=== PATIENT | male | born 1935 | race Caucasian/White ===

== ENCOUNTER → 2016-11-12 | Outpatient (CLI) | payer MEDICARE, BC ==
--- NOTE | 2016-11-12 10:02 | CT ---
EXAMINATION TYPE: CT brain wo con DATE OF EXAM: 11/12/2016 COMPARISON: NONE HISTORY: H/O stroke, not feeling well CT DLP: 1054.2 mGycm Automated exposure control for dose reduction was used. FINDINGS: There is no acute intracranial hemorrhage, mass effect, or midline shift identified. The ventricles and sulci are within normal limits in size. There are cerebral vascular calcifications. Low-attenuati on within the posterior temporal, left parietal region compatible with encephalomalacia and previous infarct. Ex vacuo phenomenon present at the posterior horn of the left lateral ventricle. There is co rtical atrophy. Periventricular white matter low-attenuation compatible with chronic small vessel isc hemia is noted. The globes are intact and the visualized sinuses are clear. IMPRESSION: No acute intracranial hemorrhage, mass effect, or midline shift is seen. Age-related atrophy and clinical medical assistant shubham small vessel ischemia.
== END | disposition home or self-care (01) ==
LOC: RADCTMAIN 09:18
PROVIDERS: ATTEND Family Medicine
DX: G31.9 Degenerative disease of nervous system, unspecified (principal); I67.82 Cerebral ischemia; Z88.5 Allergy status to narcotic agent; Z88.8 Allergy status to other drugs, medicaments and biological substances
CPT/HCPCS: 70450

== ENCOUNTER 2018-03-29 12:06 | Emergency (ER) | payer MEDICARE, BC ==
[2018-03-29 12:15] VITALS: RESP 18
--- NOTE | 2018-03-29 12:43 | ED ---
General Adult HPI - General Chief complaint: Dizziness Stated complaint: lightheaded/dizziness Time Seen by Provider: 03/29/18 12:10 Source: patient, EMS, RN notes reviewed Mode of arrival: EMS Limitations: no limitations - History of Present Illness Initial comments: This is an 83-year-old who presents emergency department because he became dizzy while he was cutting down trees this morning. Patient states he is so dizzy had a go to the ground and stated because every time he try to get up the dizziness got worse. Patient denied any headache. Patient states she was looking up and down while he was cutting a tree. Patient did not notice that movement was making it worse. Patient denied any nausea or vomiting. Patient denied any palpitations or chest pain. Patient had any difficulty breathing or shortness of breath. Patient denies any previous history of similar. Patient denies any history of atrial fibrillation. Patient denies any abdominal pain. Patient denies any recent fever chills or cough. Patient states he did not at any time feel like he was going to pass out it was just so dizzy was difficult to stand - Related Data Home Medications Medication Instructions Recorded Confirmed Allopurinol [Zyloprim] 100 mg PO BID 03/29/18 03/29/18 Atenolol [Tenormin] 50 mg PO BID 03/29/18 03/29/18 Enalapril/Hydrochlorothiazide 1 tab PO DAILY 03/29/18 03/29/18 [Vaseretic 5-12.5 mg] Lansoprazole 15 mg PO DAILY 03/29/18 03/29/18 Loratadine [Claritin] 10 mg PO DAILY 03/29/18 03/29/18 Warfarin Sodium [Coumadin] 5 mg PO MOTUWETHFR 03/29/18 03/29/18 Warfarin Sodium [Coumadin] 10 mg PO SUSA 03/29/18 03/29/18 Previous Rx's Medication Instructions Recorded Meclizine [Antivert] 25 mg PO TID #20 tab 03/29/18 Allergies Allergy/AdvReac Type Severity Reaction Status Date / Time codeine Allergy Unknown Verified 03/29/18 13:15 diazepam [From Valium] Allergy Unknown Verified 03/29/18 13:15 Review of Systems ROS Statement: Those systems with pertinent positive or pertinent negative responses have been documented in the HPI. ROS Other: All systems not noted in ROS Statement are negative. Past Medical History Past Medical History: Atrial Flutter, CVA/TIA, Hypertension History of Any Multi-Drug Resistant Organisms: None Reported Past Surgical History: Appendectomy Past Psychological History: No Psychological Hx Reported Smoking Status: Former smoker Past Alcohol Use History: None Reported Past Drug Use History: None Reported General Exam - General Exam Comments Initial Comments: GENERAL: Patient is well-developed and well-nourished. Patient is nontoxic and well- hydrated and is in mild distress. ENT: Neck is soft and supple. No significant lymphadenopathy is noted. Oropharynx is clear. Moist mucous membranes. Neck has full range of motion without eliciting any pain. EYES: The sclera were anicteric and conjunctiva were pink and moist. Extraocular movements were intact and pupils were equal round and reactive to light. Eyelids were unremarkable. PULMONARY: Unlabored respirations. Good breath sounds bilaterally. No audible rales rhonchi or wheezing was noted. CARDIOVASCULAR: Irregular rate and rhythm ABDOMEN: Soft and nontender with normal bowel sounds. No palpable organomegaly was noted. There is no palpable pulsatile mass. SKIN: Skin is clear with no lesions or rashes and otherwise unremarkable. NEUROLOGIC: Patient is alert and oriented x3. Cranial nerves II through XII are grossly intact. Motor and sensory are also intact. Normal speech, volume and content. Symmetrical smile. Finger to nose cerebellar testing is normal MUSCULOSKELETAL: Normal extremities with adequate strength and full range of motion. No lower extremity swelling or edema. No calf tenderness. LYMPHATICS: No significant lymphadenopathy is noted PSYCHIATRIC: Normal psychiatric evaluation. Normal interpersonal interactions appears functionally intact in deals appropriately with others. No signs of depression. No signs of anxiety. No delusions. No hallucinations. Limitations: no limitations Course Vital Signs 03/29/18 03/29/18 12:13 14:57 Temperature 97.6 F Pulse Rate 77 66 Respiratory 18 18 Rate Blood Pressure 131/77 134/76 O2 Sat by Pulse 98 98 Oximetry Medical Decision Making - Medical Decision Making EKG shows atrial fibrillation at 60 bpm QRS is 86 QT interval is 442 QTC is 469. No old EKG yet to compare to Chest x-ray showed no acute abnormality. CT of the brain shows no acute abnormality. Patient got Antivert for the vertigo-like symptoms. Patient was no longer vertiginous and was able to ambulate without being dizzy. Patient has no symptoms at this time he will be discharged to follow-up with his doctor. Primary care doctor verified that the patient had a history of atrial fibrillation. - Lab Data Result diagrams: 03/29/18 12:15 03/29/18 12:15 Lab Results 03/29/18 03/29/18 03/29/18 Range/Units 12:15 12:15 12:15 WBC 6.9 (3.8-10.6) k/uL RBC 3.95 L (4.30-5.90) m/uL Hgb 12.5 L (13.0-17.5) gm/dL Hct 38.9 L (39.0-53.0) % MCV 98.5 (80.0-100.0) fL MCH 31.5 (25.0-35.0) pg MCHC 32.0 (31.0-37.0) g/dL RDW 13.8 (11.5-15.5) % Plt Count 217 (150-450) k/uL Neutrophils % 57 % Lymphocytes % 29 % Monocytes % 9 % Eosinophils % 3 % Basophils % 1 % Neutrophils # 3.9 (1.3-7.7) k/uL Lymphocytes # 2.0 (1.0-4.8) k/uL Monocytes # 0.6 (0-1.0) k/uL Eosinophils # 0.2 (0-0.7) k/uL Basophils # 0.1 (0-0.2) k/uL PT (9.0-12.0) sec INR (<1.2) APTT (22.0-30.0) sec Sodium 136 L (137-145) mmol/L Potassium 4.1 (3.5-5.1) mmol/L Chloride 104 (98-107) mmol/L Carbon Dioxide 23 (22-30) mmol/L Anion Gap 9 mmol/L BUN 21 H (9-20) mg/dL Creatinine 0.90 (0.66-1.25) mg/dL Est GFR (CKD-EPI)AfAm >90 (>60 ml/min/1.73 sqM) Est GFR (CKD-EPI)NonAf 79 (>60 ml/min/1.73 sqM) Glucose 117 H (74-99) mg/dL Calcium 8.9 (8.4-10.2) mg/dL Magnesium 1.8 (1.6-2.3) mg/dL Total Bilirubin 0.5 (0.2-1.3) mg/dL AST 38 (17-59) U/L ALT 32 (21-72) U/L Alkaline Phosphatase 68 (38-126) U/L Total Creatine Kinase 159 (55-170) U/L CK-MB (CK-2) 2.7 H (0.0-2.4) ng/mL CK-MB (CK-2) Rel Index 1.7 Troponin I <0.012 (0.000-0.034) ng/mL Total Protein 6.8 (6.3-8.2) g/dL Albumin 3.7 (3.5-5.0) g/dL 03/29/18 Range/Units 12:15 WBC (3.8-10.6) k/uL RBC (4.30-5.90) m/uL Hgb (13.0-17.5) gm/dL Hct (39.0-53.0) % MCV (80.0-100.0) fL MCH (25.0-35.0) pg MCHC (31.0-37.0) g/dL RDW (11.5-15.5) % Plt Count (150-450) k/uL Neutrophils % % Lymphocytes % % Monocytes % % Eosinophils % % Basophils % % Neutrophils # (1.3-7.7) k/uL Lymphocytes # (1.0-4.8) k/uL Monocytes # (0-1.0) k/uL Eosinophils # (0-0.7) k/uL Basophils # (0-0.2) k/uL PT 22.3 H (9.0-12.0) sec INR 2.5 H (<1.2) APTT 26.5 (22.0-30.0) sec Sodium (137-145) mmol/L Potassium (3.5-5.1) mmol/L Chloride (98-107) mmol/L Carbon Dioxide (22-30) mmol/L Anion Gap mmol/L BUN (9-20) mg/dL Creatinine (0.66-1.25) mg/dL Est GFR (CKD-EPI)AfAm (>60 ml/min/1.73 sqM) Est GFR (CKD-EPI)NonAf (>60 ml/min/1.73 sqM) Glucose (74-99) mg/dL Calcium (8.4-10.2) mg/dL Magnesium (1.6-2.3) mg/dL Total Bilirubin (0.2-1.3) mg/dL AST (17-59) U/L ALT (21-72) U/L Alkaline Phosphatase (38-126) U/L Total Creatine Kinase (55-170) U/L CK-MB (CK-2) (0.0-2.4) ng/mL CK-MB (CK-2) Rel Index Troponin I (0.000-0.034) ng/mL Total Protein (6.3-8.2) g/dL Albumin (3.5-5.0) g/dL Disposition Clinical Impression: Vertigo Disposition: HOME SELF-CARE Condition: Good Instructions: Vertigo (ED) Prescriptions: Meclizine [Antivert] 25 mg PO TID #20 tab Is patient prescribed a controlled substance at d/c from ED?: No Referrals: Evan Sprague MD [Primary Care Provider] - 1-2 days Time of Disposition: 15:27
[2018-03-29 13:01] LABS: Basophils # (A) 0.1 k/uL (0-0.2); Basophils % (A) 1 %; Eosinophils # (A) 0.2 k/uL (0-0.7); Eosinophils % (A) 3 %; HCT 38.9 % (39.0-53.0); HGB 12.5 gm/dL (13.0-17.5); Lymphocytes % (A) 29 %; MCH 31.5 pg (25.0-35.0); MCV 98.5 fL (80.0-100.0); Mean Platelet Volume 7.6; Monocytes # (A) 0.6 k/uL (0-1.0); Monocytes % (A) 9 %; Neutrophils # (A) 3.9 k/uL (1.3-7.7); Neutrophils % (A) 57 %; Platelet Count 217 k/uL (150-450); RBC 3.95 m/uL (4.30-5.90); RDW 13.8 % (11.5-15.5); WBC 6.9 k/uL (3.8-10.6)
[2018-03-29 13:19] LABS: Creatine Kinase 159 U/L (55-170)
[2018-03-29 13:20] LABS: ALT 32 U/L (21-72); AST 38 U/L (17-59); Albumin 3.7 g/dL (3.5-5.0); Alkaline Phosphatase 68 U/L (38-126); Anion Gap 9 mmol/L; Blood Urea Nitrogen 21 mg/dL (9-20); Calcium 8.9 mg/dL (8.4-10.2); Carbon Dioxide 23 mmol/L (22-30); Chloride 104 mmol/L (98-107); Glucose 117 mg/dL (74-99); Magnesium 1.8 mg/dL (1.6-2.3); Potassium 4.1 mmol/L (3.5-5.1); Sodium 136 mmol/L (137-145); Total Bilirubin 0.5 mg/dL (0.2-1.3); Total Protein 6.8 g/dL (6.3-8.2)
[2018-03-29 13:24] LABS: INR 2.5 (<1.2); Partial Thromboplastin Time 26.5 sec (22.0-30.0); Prothrombin Time 22.3 sec (9.0-12.0)
[2018-03-29 13:32] LABS: Creatine Kinase MB 2.7 ng/mL (0.0-2.4); Troponin I <0.012 ng/mL (0.000-0.034)
--- NOTE | 2018-03-29 13:45 | CT ---
EXAMINATION TYPE: CT brain wo con DATE OF EXAM: 03/29/2018 COMPARISON: 11/12/2016 HISTORY: dizziness/lightheaded CT DLP: 1027.[address] of the brain was performed. The ventricles, basal cisterns and sulci overlying the cerebral convexities demonstrate mild enlargem ent. There is no evidence for intracranial hemorrhage or sulcal effacement. There is decreased attenuation about the periventricular white matter and deep white matter of both c erebral hemispheres, compatible with chronic small vessel ischemia. Differential diagnosis does inclu de demyelination. Remote insult posterior left temporal parietal lobe. No mass effects are seen.No midline shift. Osseous calvarium is intact. If symptoms persist consider MRI. IMPRESSION: 1. Age related atrophic and chronic small vessel ischemic change without acute intracranial process s een at this time.
--- NOTE | 2018-03-29 14:05 | XR ---
EXAMINATION TYPE: XR chest 2V DATE OF EXAM: 03/29/2018 COMPARISON: NONE HISTORY: Shortness of breath TECHNIQUE: Frontal and lateral views of the chest are obtained. FINDINGS: Scattered senescent parenchymal changes noted. No evidence for infiltrate. No evidence for atelectasis. Nodular density left upper lobe consider CT on a nonemergent basis. Heart size is stable. Mediastinal structures are stable and grossly unremarkable. No evidence for hilar prominence. Degenerative changes dorsal spine. IMPRESSION: 1. No evidence for acute pulmonary disease.Nodular density left upper lobe consider CT on a nonemerge nt basis.
[2018-03-29] MEDS ORDERED: MECLIZINE 25 MG TAB PO STA (14:45)
[2018-03-29 14:58] VITALS: BP 134/76; PULSE 66
[2018-03-29 15:36] VITALS: TEMP 97.8
== END 2018-03-29 15:28 | disposition home or self-care (01) ==
LOC: EC 12:06
DX: R42 Dizziness and giddiness (principal); I48.91 Unspecified atrial fibrillation; I10 Essential (primary) hypertension; Z86.73 Personal history of transient ischemic attack (TIA), and cerebral infarction without residual deficits; Z87.891 Personal history of nicotine dependence; Z90.49 Acquired absence of other specified parts of digestive tract; Z79.01 Long term (current) use of anticoagulants; Z79.899 Other long term (current) drug therapy; Z88.5 Allergy status to narcotic agent; Z88.8 Allergy status to other drugs, medicaments and biological substances
CPT/HCPCS: 36415; 70450; 71046; 80053; 82550; 82553; 83735; 84484; 85025; 85610; 85730; 93005; 99285

== ENCOUNTER 2020-01-11 11:59 | Emergency (ER) | payer MEDICARE, BC ==
[2020-01-11 12:27] VITALS: BP 149/64; PULSE 65; RESP 18; TEMP 98.5
--- NOTE | 2020-01-11 13:03 | ED ---
Fall HPI - General Chief Complaint: Fall Stated Complaint: fall, rt arm injury Time Seen by Provider: 01/11/20 12:33 Source: patient Mode of arrival: wheelchair - History of Present Illness Initial Comments: Patient is an 84-year-old male on Coumadin presenting to the emergency department with a chief complaint of a fall. Patient states he was working out in his yard while he was carrying a wheelbarrow. Patient states the will per lost balance and he went down with it. Patient reports he calls a skin tear on his right arm. Patient reports he bleeds easily so he came to the emergency department to stop the bleeding. Patient denies any head injury. Patient states he has lab work performed monthly to check his INR levels. Patient reports his most recent INR levels was 2.4 which was obtained and less than 1 month. Patient reports he has no pain in his right arm aside from the skin tear. States he attempted to wrap it really tight with cloth that he had at home. States his tetanus is up-to-date. - Related Data Home Medications Medication Instructions Recorded Confirmed Enalapril/Hydrochlorothiazide 1 tab PO DAILY 03/29/18 03/29/18 [Vaseretic 5-12.5 mg] Lansoprazole 15 mg PO DAILY 03/29/18 03/29/18 Loratadine [Claritin] 10 mg PO DAILY 03/29/18 03/29/18 Warfarin Sodium [Coumadin] 5 mg PO MOTUWETHFR 03/29/18 03/29/18 Warfarin Sodium [Coumadin] 10 mg PO SUSA 03/29/18 03/29/18 allopurinoL [Zyloprim] 100 mg PO BID 03/29/18 03/29/18 atenoloL [Tenormin] 50 mg PO BID 03/29/18 03/29/18 Previous Rx's Medication Instructions Recorded Meclizine [Antivert] 25 mg PO TID #20 tab 03/29/18 Allergies Allergy/AdvReac Type Severity Reaction Status Date / Time codeine Allergy Unknown Verified 01/11/20 12:27 diazepam [From Valium] Allergy Unknown Verified 01/11/20 12:27 Review of Systems ROS Statement: Those systems with pertinent positive or pertinent negative responses have been documented in the HPI. ROS Other: All systems not noted in ROS Statement are negative. Past Medical History Past Medical History: Atrial Flutter, CVA/TIA, Hypertension History of Any Multi-Drug Resistant Organisms: None Reported Past Surgical History: Appendectomy Past Psychological History: No Psychological Hx Reported Smoking Status: Former smoker Past Alcohol Use History: None Reported Past Drug Use History: None Reported General Exam Limitations: no limitations General appearance: alert, in no apparent distress Head exam: Present: atraumatic, normocephalic, normal inspection Eye exam: Present: normal appearance, PERRL, EOMI Pupils: Present: normal accommodation ENT exam: Present: normal exam, normal oropharynx, mucous membranes moist, TM's normal bilaterally, normal external ear exam Neck exam: Present: normal inspection, full ROM. Absent: tenderness Respiratory exam: Present: normal lung sounds bilaterally. Absent: respiratory distress, wheezes Cardiovascular Exam: Present: regular rate, normal rhythm, normal heart sounds Extremities exam: Present: full ROM, tenderness (Mild tenderness at the skin tears were no joint or bone pain.), normal capillary refill, other (+2 ulnar radial pulses.). Absent: normal inspection (Multiple skin tears on the right upper extremity with varying sizes. No active bleeding at this time.) Back exam: Present: normal inspection, full ROM. Absent: tenderness Neurological exam: Present: alert, oriented X3, CN II-XII intact, normal gait Psychiatric exam: Present: normal affect, normal mood Skin exam: Present: warm, dry, intact, normal color Course Vital Signs 01/11/20 12:22 Temperature 98.5 F Pulse Rate 65 Respiratory 18 Rate Blood Pressure 149/64 O2 Sat by Pulse 96 Oximetry Medical Decision Making - Medical Decision Making Patient is an 84-year-old male presenting to emergency Department with a chief complaint of a fall. Patient describe the exact mechanism of fall with no head injury or loss of consciousness. Patient did have recent blood work less than 1 month ago revealed an INR of 2.4. Patient states he receives his labwork on monthly basis. On exam he had multiple skin tears on his right upper extremity of varying sizes with no active bleeding at this time. Excess skin was removed. The wound sites were cleaned thoroughly with iodine. Nonstick gauze was applied and the injured sites were dressed. Patient had no tenderness elsewhere aside from the superficial pain from the skin tears. Return parameters were thoroughly discussed the patient was understanding and agreeable. His tetanus is up-to-date. Case discussed with physician. Disposition Clinical Impression: Skin tear of right upper extremity, Fall Disposition: HOME SELF-CARE Condition: Stable Instructions (If sedation given, give patient instructions): Skin Tear (ED) Additional Instructions: Follow with primary care physician. Return to emergency department if symptoms worsen. Keep the dressing on over the next 3-5 days. Is patient prescribed a controlled substance at d/c from ED?: No Referrals: Evan Sprague MD [Primary Care Provider] - 1-2 days Time of Disposition: 13:22
== END 2020-01-11 13:29 | disposition home or self-care (01) ==
LOC: EC 11:59
DX: S41.111A Laceration without foreign body of right upper arm, initial encounter (principal); I10 Essential (primary) hypertension; I48.91 Unspecified atrial fibrillation; Z79.01 Long term (current) use of anticoagulants; Z79.899 Other long term (current) drug therapy; Z87.891 Personal history of nicotine dependence; Z86.73 Personal history of transient ischemic attack (TIA), and cerebral infarction without residual deficits; W01.0XXA Fall on same level from slipping, tripping and stumbling without subsequent striking against object, initial encounter; Y93.H2 Activity, gardening and landscaping; Y92.096 Garden or yard of other non-institutional residence as the place of occurrence of the external cause; Z88.5 Allergy status to narcotic agent; Z88.8 Allergy status to other drugs, medicaments and biological substances
CPT/HCPCS: 99283

== ENCOUNTER 2020-06-28 23:53 | Emergency (ER) | payer MEDICARE, BC ==
[2020-06-29 00:05] VITALS: BP 176/70; PULSE 73; RESP 16; TEMP 98.4
[2020-06-29 00:25] LABS: Basophils # (A) 0.1 k/uL (0-0.2); Basophils % (A) 1 %; Eosinophils # (A) 0.5 k/uL (0-0.7); Eosinophils % (A) 4 %; HCT 42.2 % (39.0-53.0); HGB 14.5 gm/dL (13.0-17.5); Lymphocytes # (A) 2.9 k/uL (1.0-4.8); Lymphocytes % (A) 25 %; MCHC 34.5 g/dL (31.0-37.0); MCV 95.8 fL (80.0-100.0); Mean Platelet Volume 7.4; Monocytes # (A) 1.1 k/uL (0-1.0); Monocytes % (A) 9 %; Neutrophils % (A) 59 %; Platelet Count 215 k/uL (150-450); RDW 13.4 % (11.5-15.5); WBC 11.8 k/uL (3.8-10.6)
[2020-06-29] MEDS ORDERED: SILVER NITRATE APPLICATOR 1 EACH STICK..EA. TOPICAL STA (00:27)
[2020-06-29 00:36] LABS: INR 2.6 (<1.2); Partial Thromboplastin Time 37.5 sec (22.0-30.0)
[2020-06-29 00:40] LABS: Calcium 9.2 mg/dL (8.4-10.2); Potassium 4.2 mmol/L (3.5-5.1)
--- NOTE | 2020-06-29 00:45 | ED ---
General Adult HPI - General Chief complaint: Wound/Laceration Stated complaint: Wound on back Time Seen by Provider: 06/29/20 00:07 Source: patient Mode of arrival: ambulatory Limitations: no limitations - History of Present Illness Initial comments: This patient is a 5-year-old man who presents with complaint that he has bleeding from a skin lesion. The patient states that he has had the skin lesion near his right scapular area going back for months to years. He states that tonight he was changing clothes and bumped the lesion and noticed that it was bleeding and he was not able to stop it. Patient does take Coumadin. Patient denies any signs or symptoms of anemia. No pain related to the lesion. He does note that he is going to have a biopsy of this lesion tomorrow. Onset/Timin -: hour(s) Location: back Radiation: non-radiation Severity scale (1-10): 0 Consistency: constant Improves with: none Worsens with: none Associated Symptoms: denies other symptoms Treatments Prior to Arrival: none - Related Data Home Medications Medication Instructions Recorded Confirmed Enalapril/Hydrochlorothiazide 1 tab PO DAILY 03/29/18 03/29/18 [Vaseretic 5-12.5 mg] Lansoprazole 15 mg PO DAILY 03/29/18 03/29/18 Loratadine [Claritin] 10 mg PO DAILY 03/29/18 03/29/18 Warfarin Sodium [Coumadin] 5 mg PO MOTUWETHFR 03/29/18 03/29/18 Warfarin Sodium [Coumadin] 10 mg PO SUSA 03/29/18 03/29/18 allopurinoL [Zyloprim] 100 mg PO BID 03/29/18 03/29/18 atenoloL [Tenormin] 50 mg PO BID 03/29/18 03/29/18 Previous Rx's Medication Instructions Recorded Meclizine [Antivert] 25 mg PO TID #20 tab 03/29/18 Allergies Allergy/AdvReac Type Severity Reaction Status Date / Time codeine Allergy Unknown Verified 06/29/20 00:00 diazepam [From Valium] Allergy Unknown Verified 06/29/20 00:00 Review of Systems ROS Statement: Those systems with pertinent positive or pertinent negative responses have been documented in the HPI. ROS Other: All systems not noted in ROS Statement are negative. Constitutional: Denies: fever, chills Respiratory: Denies: cough, dyspnea Cardiovascular: Denies: chest pain, palpitations, syncope Skin: Reports: as per HPI, lesions Hematological/Lymphatic: Reports: as per HPI. Denies: easy bleeding Past Medical History Past Medical History: Atrial Flutter, CVA/TIA, Hypertension History of Any Multi-Drug Resistant Organisms: None Reported Past Surgical History: Appendectomy Past Psychological History: No Psychological Hx Reported Smoking Status: Former smoker Past Alcohol Use History: None Reported Past Drug Use History: None Reported General Exam Limitations: no limitations General appearance: alert, in no apparent distress Head exam: Present: atraumatic, normocephalic Respiratory exam: Present: normal lung sounds bilaterally. Absent: respiratory distress, wheezes, rales, rhonchi, stridor Cardiovascular Exam: Present: regular rate, normal rhythm Back exam: Present: other (Patient has a approximately 3 cm diameter irregular, fleshy, pedunculated skin lesion overlying the right scapula. There does appear to be some bleeding from surface capillaries.) Neurological exam: Present: alert Skin exam: Present: warm, dry, intact, normal color, other (See above). Absent: rash Course Vital Signs 06/29/20 00:00 Temperature 98.4 F Pulse Rate 73 Respiratory 16 Rate Blood Pressure 176/70 O2 Sat by Pulse 97 Oximetry Medical Decision Making - Medical Decision Making Patient is an 85-year-old man presenting with bleeding from a skin lesion to the right back. It does appear to be probably a skin tag with some bleeding from surface capillary. I did apply silver nitrate, which did achieve good hemostasis. Discussed further care and follow-up with the patient who does have been tomorrow for biopsy of the skin lesion. - Lab Data Result diagrams: 06/29/20 00:18 06/29/20 00:18 Lab Results 06/29/20 06/29/20 06/29/20 Range/Units 00:18 00:18 00:18 WBC 11.8 H (3.8-10.6) k/uL RBC 4.40 (4.30-5.90) m/uL Hgb 14.5 (13.0-17.5) gm/dL Hct 42.2 (39.0-53.0) % MCV 95.8 (80.0-100.0) fL MCH 33.0 (25.0-35.0) pg MCHC 34.5 (31.0-37.0) g/dL RDW 13.4 (11.5-15.5) % Plt Count 215 (150-450) k/uL MPV 7.4 Neutrophils % 59 % Lymphocytes % 25 % Monocytes % 9 % Eosinophils % 4 % Basophils % 1 % Neutrophils # 7.0 (1.3-7.7) k/uL Lymphocytes # 2.9 (1.0-4.8) k/uL Monocytes # 1.1 H (0-1.0) k/uL Eosinophils # 0.5 (0-0.7) k/uL Basophils # 0.1 (0-0.2) k/uL PT 25.0 H (9.0-12.0) sec INR 2.6 H (<1.2) APTT 37.5 H (22.0-30.0) sec Sodium 136 L (137-145) mmol/L Potassium 4.2 (3.5-5.1) mmol/L Chloride 102 (98-107) mmol/L Carbon Dioxide 25 (22-30) mmol/L Anion Gap 9 mmol/L BUN 18 (9-20) mg/dL Creatinine 1.07 (0.66-1.25) mg/dL Est GFR (CKD-EPI)AfAm 74 (>60 ml/min/1.73 sqM) Est GFR (CKD-EPI)NonAf 64 (>60 ml/min/1.73 sqM) Glucose 138 H (74-99) mg/dL Calcium 9.2 (8.4-10.2) mg/dL Disposition Clinical Impression: Skin tag, Bleeding Disposition: HOME SELF-CARE Condition: Good Instructions (If sedation given, give patient instructions): Potassium Nitrate/Silver Nitrate (On the skin) Is patient prescribed a controlled substance at d/c from ED?: No Referrals: Evan Sprague MD [Primary Care Provider] - 1-2 days
== END 2020-06-29 00:55 | disposition home or self-care (01) ==
LOC: EC 23:53
DX: L98.9 Disorder of the skin and subcutaneous tissue, unspecified (principal); I10 Essential (primary) hypertension; Z79.899 Other long term (current) drug therapy; Z88.5 Allergy status to narcotic agent; Z88.8 Allergy status to other drugs, medicaments and biological substances; Z90.49 Acquired absence of other specified parts of digestive tract; Z87.891 Personal history of nicotine dependence; Z86.73 Personal history of transient ischemic attack (TIA), and cerebral infarction without residual deficits
CPT/HCPCS: 36415; 80048; 85025; 85610; 85730; 99283

== ENCOUNTER 2023-11-16 19:10 | Emergency (ER) | payer MEDICARE, BC ==
--- NOTE | 2023-11-16 19:24 | ED ---
General Adult HPI - General Source: RN notes reviewed <Herbie Carbajal - Last Filed: 11/16/23 19:25> - General Source: patient, RN notes reviewed, old records reviewed <Lamont Kerns - Last Filed: 11/16/23 22:16> - General Stated complaint: dizzy Time Seen by Provider: 11/16/23 19:23 - History of Present Illness Initial comments: Quicknote 88-year-old male presenting to the ED with complaints of dizziness. Patient states he was working outside all day when he was having intermittent episodes of dizziness. States that this started around 8 AM. Reports dizziness is worse with movement. Denies chest pain or shortness of breath. (Herbie Carbajal) Patient is an 88-year-old male who is brought to the emergency department for evaluation. Brought in by his son for evaluation of dizziness, possible mild confusion after working all day outside at home. Has a history of multiple strokes. Is still on Coumadin. Has a history of atrial flutter. Patient is currently at his baseline, which is hard of hearing with some slight difficulty with word finding but overall no deficits that are residual from the stroke. He states he did need some therapy to regain his speech. Patient's son does conf irm he is at his baseline and the only reason why patient presents is for mostly of the dizziness at this time. He does have a history of some room spinning dizziness which she described but it seemed worse earlier which is why he was brought in for evaluation. Patient denies any other acute complaints. Denies any current dizziness. Denies chest pain or shortness of breath. Denies abdominal pain. Presents for further evaluation at this time. Patient is seen as a quick note. I evaluated the patient when he was placed in room.Patient is on Coumadin. Denies any falls. (Lamont Kerns) - Related Data Home Medications Medication Instructions Recorded Confirmed Enalapril/Hydrochlorothiazide 1 tab PO DAILY 03/29/18 03/29/18 [Vaseretic 5-12.5 mg] Lansoprazole 15 mg PO DAILY 03/29/18 03/29/18 Loratadine [Claritin] 10 mg PO DAILY 03/29/18 03/29/18 Warfarin Sodium [Coumadin] 5 mg PO MOTUWETHFR 03/29/18 03/29/18 Warfarin Sodium [Coumadin] 10 mg PO SUSA 03/29/18 03/29/18 allopurinoL [Zyloprim] 100 mg PO BID 03/29/18 03/29/18 atenoloL [Tenormin] 50 mg PO BID 03/29/18 03/29/18 Previous Rx's Medication Instructions Recorded Meclizine [Antivert] 25 mg PO TID #20 tab 03/29/18 Amoxic-Pot Clav 875-125Mg 1 tab PO Q12HR 7 Days #14 tab 11/16/23 [Augmentin 875-125] Allergies Allergy/AdvReac Type Severity Reaction Status Date / Time codeine Allergy Unknown Verified 11/16/23 19:28 diazepam [From Valium] Allergy Unknown Verified 11/16/23 19:28 Review of Systems ROS Other: All systems not noted in ROS Statement are negative. <Herbie Carbajal - Last Filed: 11/16/23 19:25> ROS Other: All systems not noted in ROS Statement are negative. <Lamont Kerns - Last Filed: 11/16/23 22:16> ROS Statement: Those systems with pertinent positive or pertinent negative responses have been documented in the HPI. Review of Systems: CONST: Denies fever EYES: Denies blurry vision ENT: Denies nasal congestion C/V: Denies Chest pain RESP: Denies shortness of breath GI: Denies abdominal pain : Denies dysuria SKIN: Denies rash. MSK: Denies joint pain. NEURO: Denies headache (Lamont Kerns) Past Medical History Past Medical History: Atrial Flutter, CVA/TIA, Hypertension History of Any Multi-Drug Resistant Organisms: None Reported Past Surgical History: Appendectomy Past Psychological History: No Psychological Hx Reported Smoking Status: Former smoker Past Alcohol Use History: None Reported Past Drug Use History: None Reported <Herbie Carbajal - Last Filed: 11/16/23 19:25> General Exam <Herbie Carbajal - Last Filed: 11/16/23 19:25> <Lamont Kerns - Last Filed: 11/16/23 22:16> - General Exam Comments Initial Comments: Visual Physical Exam Vital signs reviewed General: Well-appearing, nontoxic, no acute distress. Head: Normocephalic, atraumatic Eyes: PERRLA, EOMI ENT: Airway patent Chest: Nonlabored breathing Skin: No visual rash, normal skin tone Neuro: Alert and oriented 3 Musculoskeletal: No gross abnormalities (Herbie Carbajal) General: Appears in no acute distress. HEAD: Normal with no signs of head trauma. EYES: PERRLA, EOMI, conjunctiva normal, no discharge. Pulls are 3 mm and equal bilaterally. ENT: Hearing grossly intact, normal oropharynx. RESPIRATORY: Clear breath sounds bilaterally. No wheezes, rales, or rhonchi. C/V: Regular rate and rhythm. S1 and S2 auscultated, no edema, peripheral pulses 2+ and intact throughout ABD: Abd is soft, nontender, nondistended EXT: Normal range of motion, no obvious deformity SKIN: No rashes or lesions observed on exposed skin. NEURO: Alert and oriented x 4. Cranial nerves II-XII intact. No focal sensory or strength deficits. NIH is 0 for new deficits. GCS of 15. (Lamont Kerns) Course Vital Signs 11/16/23 11/16/23 11/16/23 19:21 21:00 21:51 Temperature 97.9 F 98.1 F Pulse Rate 81 58 L 71 Respiratory 18 18 18 Rate Blood Pressure 162/69 143/85 132/63 O2 Sat by Pulse 100 100 100 Oximetry Medical Decision Making <Herbie Carbajal - Last Filed: 11/16/23 19:25> - Lab Data Result diagrams: 11/16/23 19:50 11/16/23 19:50 - EKG Data -: EKG Interpreted by Ak <Lamont Kerns - Last Filed: 11/16/23 22:16> - Medical Decision Making Quicknote portion performed. Signed Herbie Carbajal PA-C (Herbie Carbajal) Was pt. sent in by a medical professional or institution (, PA, MARINE PHOTOGRAPHER, urgent care, hospital, or shelter...) When possible be specific @ -No Did you speak to anyone other than the patient for history (EMS, parent, family, police, friend...)? What history was obtained from this source @ -Spoke with patient's son who is at bedside and confirm patient is at current baseline mental status. Just concern for slightly worse dizziness earlier. Did you review nursing and triage notes (agree or disagree)? Why? @ -I reviewed and agree with nursing and triage notes Were old charts reviewed (outside hosp., previous admission, EMS record, old EKG, old radiological studies, urgent care reports/EKG's, shelter records)? Report findings @ -No old charts were reviewed Differential Diagnosis (chest pain, altered mental status, abdominal pain women, abdominal pain men, vaginal bleeding, weakness, fever, dyspnea, syncope, headache, dizziness, GI bleed, back pain, seizure, CVA, palpatations, mental health, musculoskeletal)? @ -Differential Dizziness: Benign paroxysmal positional Vertigo, Menieres disease, otitis media, acoustic neuroma, vertebrobasilar insufficiency, cerebellar stroke, encephalitis, hypovolemic, arrhythmia, coronary artery syndrome, anemia, this is not meant to be an all-inclusive list EKG interpreted by me (3pts min.). @ -As above X-rays interpreted by me (1pt min.). @ -Chest x-ray shows possible developing left upper lobe pneumonia CT interpreted by me (1pt min.). @ -CT brain reveals no obvious acute intracranial process. U/S interpreted by me (1pt. min.). @ -None done What testing was considered but not performed or refused? (CT, X-rays, U/S, la bs)? Why? @ -None What meds were considered but not given or refused? Why? @ -None Did you discuss the management of the patient with other professionals (professionals i.e. , PA, MARINE PHOTOGRAPHER, lab, RT, psych nurse, social welfare clerk, bander and cellophaner helper machine, teacher, sheriff's officer, shoe parts caser)? Give summary @ -No Was smoking cessation discussed for >3mins.? @ -No Was critical care preformed (if so, how long)? @ -No Were there social determinants of health that impacted care today? How? (Homelessness, low income, unemployed, alcoholism, drug addiction, transportation, low edu. Level, literacy, decrease access to med. care, alf, rehab)? @ -No Was there de-escalation of care discussed even if they declined (Discuss DNR or withdrawal of care, Hospice)? DNR status @ -No What co-morbidities impacted this encounter? (DM, HTN, Smoking, COPD, CAD, Cancer, CVA, ARF, Chemo, Hep., AIDS, mental health diagnosis, sleep apnea, morbid obesity)? @ -Prior strokes Was patient admitted / discharged? Hospital course, mention meds given and route, prescriptions, significant lab abnormalities, going to OR and other [facility] info. @ -Based on the patient's presentation and physical exam, presents emergency department complaining of worsening dizziness earlier. Symptoms are more or less resolved the patient will be given a dose of meclizine as well as IV fluids. Patient's son does confirm that he is at his baseline mental status currently. As patient was working outside and had a transient episode of confusion earlier we will obtain CT brain as well as basic labs. Patient and patient's son in agreement this plan. Vital signs within acceptable limits. EKG shows no signs of acute ischemia. Patient's laboratory studies are remarkable for slight supratherapeutic INR 3.1. Made to the labs within acceptable limits. CT brain shows no obvious acute intracranial process. Chest x-ray shows possible developing left upper lobe pneumonia. On reevaluation, patient remains asymptomatic. Discussed results of imaging and workup. Will be initiated on antibiotics for left upper lobe pneumonia. Will be started on Augmentin. I also recommended he hold 1 dose of Coumadin as he does have a slight supratherapeutic INR which she was in agreement with. Patient's son updated by nursing staff and patient will be discharged home in the care of his son. I will provide the patient with a prescription for Augmentin. I instructed the patient to follow up with their PCP in the next 1-3 days.. I explained that the patient should return to the emergency department if they experience any worsening symptoms. Strict return precautions were discussed with the patient. The patient expressed understanding of these instructions. I answered all questions that the patient had. The patient was discharged home in good condition with their prescriptions and follow up information. Undiagnosed new problem with uncertain prognosis? @ -No Drug Therapy requiring intensive monitoring for toxicity (Heparin, Nitro, Insu alejandra, Cardizem)? @ -No Were any procedures done? @ -No Diagnosis/symptom? @ -Pneumonia, supratherapeutic INR Acute, or Chronic, or Acute on Chronic? @ -Acute Uncomplicated (without systemic symptoms) or Complicated (systemic symptoms)? @ -Uncomplicated Side effects of treatment? @ -No Exacerbation, Progression, or Severe Exacerbation? @ -No Poses a threat to life or bodily function? How? (Chest pain, [place], [place], pneumonia, PE, COPD, DKA, ARF, appy, cholecystitis, CVA, Diverticulitis, Homicidal, Suicidal, threat to staff... and all critical care pts) @ -Unlikely Diagnosis/symptom? @ -Dizziness/vertigo Acute, or Chronic, or Acute on Chronic? @ -Acute on chronic Uncomplicated (without systemic symptoms) or Complicated (systemic symptoms)? @ -Complicated Side effects of treatment? @ -None Exacerbation, Progression, or Severe Exacerbation] @ -No Poses a threat to life or bodily function? @ -Unlikely (Lamont Kerns) - Lab Data Lab Results 11/16/23 11/16/23 11/16/23 Range/Units 19:50 19:50 19:50 WBC 7.4 (3.8-10.6) k/uL RBC 4.19 L (4.30-5.90) m/uL Hgb 13.3 (13.0-17.5) gm/dL Hct 41.3 (39.0-53.0) % MCV 98.8 (80.0-100.0) fL MCH 31.8 (25.0-35.0) pg MCHC 32.1 (31.0-37.0) g/dL RDW 13.5 (11.5-15.5) % Plt Count 196 (150-450) k/uL MPV 7.6 Neutrophils % 46 % Lymphocytes % 38 % Monocytes % 9 % Eosinophils % 3 % Basophils % 1 % Neutrophils # 3.4 (1.3-7.7) k/uL Lymphocytes # 2.8 (1.0-4.8) k/uL Monocytes # 0.7 (0-1.0) k/uL Eosinophils # 0.2 (0-0.7) k/uL Basophils # 0.1 (0-0.2) k/uL PT (10.0-12.5) sec INR (<1.2) APTT (22.0-30.0) sec Sodium 135 L (137-145) mmol/L Potassium 4.4 (3.5-5.1) mmol/L Chloride 103 (98-107) mmol/L Carbon Dioxide 26 (22-30) mmol/L Anion Gap 6 mmol/L BUN 21 H (9-20) mg/dL Creatinine 0.86 (0.66-1.25) mg/dL Est GFR (CKD-EPI)AfAm >90 (>60 ml/min/1.73 sqM) Est GFR (CKD-EPI)NonAf 78 (>60 ml/min/1.73 sqM) Glucose 87 (74-99) mg/dL Calcium 9.0 (8.4-10.2) mg/dL Magnesium 1.9 (1.6-2.3) mg/dL Total Bilirubin 1.1 (0.2-1.3) mg/dL AST 34 (17-59) U/L ALT 13 (4-49) U/L Alkaline Phosphatase 98 (38-126) U/L Troponin I 0.019 (0.000-0.034) ng/mL Total Protein 6.8 (6.3-8.2) g/dL Albumin 4.0 (3.5-5.0) g/dL 11/16/23 Range/Units 19:50 WBC (3.8-10.6) k/uL RBC (4.30-5.90) m/uL Hgb (13.0-17.5) gm/dL Hct (39.0-53.0) % MCV (80.0-100.0) fL MCH (25.0-35.0) pg MCHC (31.0-37.0) g/dL RDW (11.5-15.5) % Plt Count (150-450) k/uL MPV Neutrophils % % Lymphocytes % % Monocytes % % Eosinophils % % Basophils % % Neutrophils # (1.3-7.7) k/uL Lymphocytes # (1.0-4.8) k/uL Monocytes # (0-1.0) k/uL Eosinophils # (0-0.7) k/uL Basophils # (0-0.2) k/uL PT 30.3 H (10.0-12.5) sec INR 3.1 H (<1.2) APTT 39.7 H (22.0-30.0) sec Sodium (137-145) mmol/L Potassium (3.5-5.1) mmol/L Chloride (98-107) mmol/L Carbon Dioxide (22-30) mmol/L Anion Gap mmol/L BUN (9-20) mg/dL Creatinine (0.66-1.25) mg/dL Est GFR (CKD-EPI)AfAm (>60 ml/min/1.73 sqM) Est GFR (CKD-EPI)NonAf (>60 ml/min/1.73 sqM) Glucose (74-99) mg/dL Calcium (8.4-10.2) mg/dL Magnesium (1.6-2.3) mg/dL Total Bilirubin (0.2-1.3) mg/dL AST (17-59) U/L ALT (4-49) U/L Alkaline Phosphatase (38-126) U/L Troponin I (0.000-0.034) ng/mL Total Protein (6.3-8.2) g/dL Albumin (3.5-5.0) g/dL - EKG Data EKG Comments: 12-lead Electrocardiogram Interpretation Note EKG was reviewed and interpreted by myself. 12-lead ECG performed at 1957 is interpreted by me as revealing atrial fibrillation at a rate of 67 beats per minute. [place] is normal. QRS duration is 84 ms, QTc is 454 ms.. There were no ST or T wave abnormalities to suggest myocardial ischemia or injury. R wave progression across the precordium was satisfactory. By my interpretation this EKG is non-diagnostic for acute ischemia. (Lamont Kerns) Disposition <Herbie Carbajal - Last Filed: 11/16/23 19:25> Is patient prescribed a controlled substance at d/c from ED?: No Time of Disposition: 21:34 <Lamont Kerns - Last Filed: 11/16/23 22:16> Clinical Impression: Pneumonia, Dizzy spells, Supratherapeutic INR Disposition: HOME SELF-CARE Condition: Good Instructions (If sedation given, give patient instructions): Community Acquired Pneumonia (ED), Dizziness (ED) Additional Instructions: Hold 1 dose of warfarin and obtain repeat INR testing next week within the next 7 days. Prescriptions: Amoxic-Pot Clav 875-125Mg [Augmentin 875-125] 1 tab PO Q12HR 7 Days #14 tab Referrals: Evan Sprague MD [Primary Care Provider] - 1-2 days
[2023-11-16 19:27] VITALS: RESP 18
[2023-11-16] MEDS: SODIUM CHLORIDE 0.9% 1,000 ML IV STA (20:08)
[2023-11-16] MEDS: MECLIZINE 12.5 MG TAB PO STA (20:08)
[2023-11-16 20:16] LABS: Basophils # (A) 0.1 k/uL (0-0.2); Basophils % (A) 1 %; Eosinophils # (A) 0.2 k/uL (0-0.7); Eosinophils % (A) 3 %; HCT 41.3 % (39.0-53.0); HGB 13.3 gm/dL (13.0-17.5); Lymphocytes # (A) 2.8 k/uL (1.0-4.8); Lymphocytes % (A) 38 %; MCH 31.8 pg (25.0-35.0); MCHC 32.1 g/dL (31.0-37.0); MCV 98.8 fL (80.0-100.0); Mean Platelet Volume 7.6; Monocytes # (A) 0.7 k/uL (0-1.0); Monocytes % (A) 9 %; Neutrophils # (A) 3.4 k/uL (1.3-7.7); Neutrophils % (A) 46 %; Platelet Count 196 k/uL (150-450); RBC 4.19 m/uL (4.30-5.90); RDW 13.5 % (11.5-15.5); WBC 7.4 k/uL (3.8-10.6)
[2023-11-16 20:25] LABS: INR 3.1 (<1.2); Partial Thromboplastin Time 39.7 sec (22.0-30.0); Prothrombin Time 30.3 sec (10.0-12.5)
[2023-11-16 20:59] LABS: ALT 13 U/L (4-49); AST 34 U/L (17-59); African American GFR (CKD) >90 (>60 ml/min/1.73 sqM); Alkaline Phosphatase 98 U/L (38-126); Anion Gap 6 mmol/L; Blood Urea Nitrogen 21 mg/dL (9-20); Carbon Dioxide 26 mmol/L (22-30); Chloride 103 mmol/L (98-107); Glucose 87 mg/dL (74-99); Magnesium 1.9 mg/dL (1.6-2.3); Non-African American GFR(CKD) 78 (>60 ml/min/1.73 sqM); Potassium 4.4 mmol/L (3.5-5.1); Sodium 135 mmol/L (137-145); Total Bilirubin 1.1 mg/dL (0.2-1.3); Total Protein 6.8 g/dL (6.3-8.2)
--- NOTE | 2023-11-16 21:02 | XR ---
EXAMINATION TYPE: XR chest 2V DATE OF EXAM: 11/16/2023 COMPARISON: 03/29/2018 HISTORY: Dizziness TECHNIQUE: Frontal and lateral views of the chest are obtained. FINDINGS: The heart size is normal. There is a small partially consolidative opacity in the left upper lobe martha picious for pneumonia. There is no pleural effusion or pneumothorax. The osseous structures are intact. IMPRESSION: Findings suspicious for left upper lobe pneumonia. Short-term follow-up to resolution is recommended.
--- NOTE | 2023-11-16 21:05 | CT ---
EXAMINATION TYPE: CT brain wo con DATE OF EXAM: 11/16/2023 COMPARISON: 03/29/2018 HISTORY: pt reports dizziness and confusion after working outside all day, noticed repetitivenes s at 1600 today. HX OF BRAIN CANCER CT DLP: 1113.4 mGycm Automated exposure control for dose reduction was used. FINDINGS: The ventricles, basal cisterns and sulci over convexities are moderately enlarged consistent with mod erate generalized atrophy appropriate for the patient's age. There is a large area of encephalomalacia involving the left parietal lobe consistent with remote inf arct. There is no acute bleed or mass effect. There is mild decreased density in the white matter consistent with mild chronic ischemic white matte r demyelination. Posterior fossa is grossly intact. The intraorbital contents appear normal with symmetric. Visualized paranasal sinuses and mastoid air cells are well aerated. IMPRESSION: 1. No acute bleed or mass effect. 2. 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 Moderate age-appropriate atrophy
[2023-11-16] MEDS: AMOXIC-POT CLAV 875-125MG 1 EACH TAB PO STA (21:46)
[2023-11-16 21:52] VITALS: BP 132/63; PULSE 71; TEMP 98.1
== END 2023-11-16 21:53 | disposition home or self-care (01) ==
LOC: EC 19:10
DX: J18.9 Pneumonia, unspecified organism (principal); R79.1 Abnormal coagulation profile; R42 Dizziness and giddiness; Z88.5 Allergy status to narcotic agent; Z88.8 Allergy status to other drugs, medicaments and biological substances; Z87.891 Personal history of nicotine dependence
CPT/HCPCS: 36415; 70450; 71046; 80053; 83735; 84484; 85025; 85610; 85730; 93005; 96360; 99284

== ENCOUNTER 2024-02-12 05:18 | Observation (INO) | payer MEDICARE, BC ==
--- NOTE | 2024-02-12 05:34 | ED ---
Dizziness HPI <Joseluis Lilly - Last Filed: 02/12/24 09:27> - General Source: patient, RN notes reviewed, old records reviewed, Caregiver Mode of arrival: wheelchair Limitations: no limitations - History of Present Illness MD Complaint: dizziness, lightheadedness, other (Hearing loss) -: hour(s) Timing: sudden onset, gradual onset History of Same: Yes History of Trauma: Yes Severity: mild Improves With: nothing, sleep Associated Symptoms: denies other symptoms <Manuel Gleason - Last Filed: 02/14/24 23:01> - General Chief Complaint: Dizziness Stated Complaint: Dizziness, Difficulty Hearing and Speaking - History of Present Illness Initial Comments: This is a 88-year-old male with poor historian coming in for evaluation of significant difficulty hearing dizziness lightheadedness and not feeling well. Patient states he started feeling sick yesterday worse today but no travel history no sick contacts no fever. Patient has no nausea vomiting diarrhea or dysuria. Patient has not started any new medications has not stopped any medications, patient does have bilateral cerumen impaction believes is affecting his hearing and his dizziness (Manuel Gleason) - Related Data Home Medications Medication Instructions Recorded Confirmed Enalapril/Hydrochlorothiazide 1 tab PO DAILY 03/29/18 02/12/24 [Vaseretic 5-12.5 mg] Warfarin Sodium [Coumadin] 5 mg PO SUMOWEFRSA 03/29/18 02/12/24 Warfarin Sodium [Coumadin] 7.5 mg PO TUTH 03/29/18 02/12/24 allopurinoL [Zyloprim] 100 mg PO BID 03/29/18 02/12/24 Triamcinolone 0.5% Cream [Kenalog 1 applic TOPICAL BID 02/12/24 02/12/24 0.5% Cream] atenoloL [Tenormin] 25 mg PO HS 02/12/24 02/12/24 Allergies Allergy/AdvReac Type Severity Reaction Status Date / Time codeine Allergy Unknown Verified 02/12/24 10:29 diazepam [From Valium] Allergy Unknown Verified 02/12/24 10:29 Review of Systems ROS Other: All systems not noted in ROS Statement are negative. <Joseluis Lilly - Last Filed: 09/06/24 09:27> ROS Other: All systems not noted in ROS Statement are negative. <VictorinoBaoromario Rondon - Last Filed: 02/14/24 23:01> ROS Statement: Those systems with pertinent positive or pertinent negative responses have been documented in the HPI. Past Medical History Past Medical History: Atrial Flutter, CVA/TIA, Hypertension History of Any Multi-Drug Resistant Organisms: None Reported Past Surgical History: Appendectomy Past Psychological History: No Psychological Hx Reported Smoking Status: Former smoker Past Alcohol Use History: None Reported Past Drug Use History: None Reported <VictorinoBaoromario Rondon - Last Filed: 02/14/24 23:01> General Exam Limitations: no limitations General appearance: alert, in no apparent distress, anxious Head exam: Present: atraumatic, normocephalic, normal inspection Eye exam: Present: normal appearance, PERRL, EOMI. Absent: scleral icterus, conjunctival injection, periorbital swelling ENT exam: Present: normal exam, mucous membranes moist Neck exam: Present: normal inspection. Absent: tenderness, meningismus, lymphadenopathy Respiratory exam: Present: normal lung sounds bilaterally. Absent: respiratory distress, wheezes, rales, rhonchi, stridor Cardiovascular Exam: Present: regular rate, normal rhythm, normal heart sounds. Absent: systolic murmur, diastolic murmur, rubs, gallop, clicks GI/Abdominal exam: Present: soft, normal bowel sounds. Absent: distended, tenderness, guarding, rebound, rigid Extremities exam: Present: normal inspection, full ROM, normal capillary refill. Absent: tenderness, pedal edema, joint swelling, calf tenderness Back exam: Present: normal inspection Neurological exam: Present: alert, oriented X3, CN II-XII intact Psychiatric exam: Present: normal affect, normal mood Skin exam: Present: warm, dry, intact, normal color. Absent: rash <Manuel Gleason - Last Filed: 02/14/24 23:01> Course <Manuel Gleason - Last Filed: 02/14/24 23:01> Vital Signs 02/12/24 02/12/24 02/12/24 05:21 07:13 11:51 Temperature 97.9 F 98.1 F Pulse Rate 70 58 L 66 Respiratory 20 15 16 Rate Blood Pressure 185/84 130/58 108/77 O2 Sat by Pulse 99 98 99 Oximetry 02/12/24 02/12/24 02/12/24 12:00 13:00 15:00 Temperature Pulse Rate 51 L 72 62 Respiratory 15 15 16 Rate Blood Pressure 164/94 168/66 164/99 O2 Sat by Pulse 96 98 99 Oximetry 02/12/24 02/12/24 02/13/24 18:46 20:12 02:00 Temperature 98.2 F Pulse Rate 78 76 76 Respiratory 15 18 16 Rate Blood Pressure 149/69 126/83 160/80 O2 Sat by Pulse 97 97 96 Oximetry 02/13/24 02/13/24 02/13/24 06:54 07:34 08:31 Temperature 97.5 F L Pulse Rate 80 76 75 Respiratory 18 18 18 Rate Blood Pressure 155/85 180/99 161/77 O2 Sat by Pulse 99 97 96 Oximetry 02/13/24 11:51 Temperature Pulse Rate 60 Respiratory 16 Rate Blood Pressure 162/83 O2 Sat by Pulse 100 Oximetry - Reevaluation(s) Reevaluation #1: 02/12/24 06:38 Medical record is reviewed (Manuel Gleason) Reevaluation #2: 02/12/24 06:39 Patient symptoms are improving (Manuel Gleason) Reevaluation #3: 02/12/24 06:39 Informed of results and questions answered (Manuel Gleason) Reevaluation #4: Was pt. sent in by a medical professional or institution (, PA, ASSOCIATE [employer], urgent care, hospital, or penitentiary...) When possible be specific @ -no Did you speak to anyone other than the patient for history (EMS, parent, family, police, friend...)? What history was obtained from this source @ -no Did you review nursing and triage notes (agree or disagree)? Why? @ -agree Are old charts reviewed (outside hosp., previous admission, EMS record, old EKG, old radiological studies, urgent care reports/EKG's, penitentiary records)? Report findings @ -yes Differential Diagnosis (chest pain, altered mental status, abdominal pain women, abdominal pain men, vaginal bleeding, weakness, fever, dyspnea, syncope, headache, dizziness, GI bleed, back pain, seizure, CVA, palpatations, mental health, musculoskeletal)? @ -prior EKG interpreted by me (3pts min.). @ -yes X-rays interpreted by me (1pt min.). @ -no CT interpreted by me (1pt min.). @ -Yes negative for acute disease U/S interpreted by me (1pt. min.). @ -no What testing was considered but not performed or refused? (CT, X-rays, U/S, labs)? Why? @ -none What meds were considered but not given or refused? Why? @ -none Did you discuss the management of the patient with other professionals (professionals i.e. , PA, ASSOC[employer]ATE [employer], lab, RT, psych nurse, social security specialist, professor of voice, teacher, county records management officer, caseworker intake)? Give summary @ -no Was smoking cessation discussed for >3mins.? @ -no Was critical care preformed (if so, how long)? @ -yes31 Were there social determinants of health that impacted care today? How? (Homelessness, low income, unemployed, alcoholism, drug addiction, transportation, low edu. Level, literacy, decrease access to med. care, correction, rehab)? @ -none Was there de-escalation of care discussed even if they declined (Discuss DNR or withdrawal of care, Hospice)? DNR status @ -no What co-morbidities impacted this encounter? (DM, HTN, Smoking, COPD, CAD, Cancer, CVA, ARF, Chemo, Hep., AIDS, mental health diagnosis, sleep apnea, morbid obesity)? @ -none Was patient admitted / discharged? Hospital course, mention meds given and route, prescriptions, significant lab abnormalities, going to OR and other pertinent info. @ -88 male to ER for dizziness, found to have elevated troponin will admit for further evaluation and management Admitted Undiagnosed new problem with uncertain prognosis? @ -no Drug Therapy requiring intensive monitoring for toxicity (Heparin, Nitro, Insulin, Cardizem)? @ -no Were any procedures done? @ -no Diagnosis/symptom? @ -Elevated troponin, dizziness Acute, or Chronic, or Acute on Chronic? @ -Acute Uncomplicated (without systemic symptoms) or Complicated (systemic symptoms)? @ -Complicated Side effects of treatment? @ -no Exacerbation, Progression, or Severe Exacerbation? @ -exacerbation Poses a threat to life or bodily function? How? (Chest pain, USA, IA, pneumonia, PE, COPD, DKA, ARF, appy, cholecystitis, CVA, Diverticulitis, Homicidal, S uicidal, threat to staff... and all critical care pts) @ -yes extremes of age (Manuel Gleason) Reevaluation #5: Differential Dizziness: Benign paroxysmal positional Vertigo, Meniere's disease, otitis media, acoustic neuroma, vertebrobasilar insufficiency, cerebellar stroke, encephalitis, hypovolemic, arrhythmia, coronary artery syndrome, anemia, this is not meant to be an all-inclusive list (Manuel Gleason) - Consultations Consultation #1: Spoke with many physicians who agreed to admit this patient (Manuel Gleason) EKG Findings - EKG Comments: EKG Findings:: EKG is A-fib 58 QRS 90 QTc 408 - EKG Results: EKG: interpreted by ERMParag <Manuel Gleason - Last Filed: 02/14/24 23:01> Medical Decision Making - Lab Data Result diagrams: 02/12/24 06:13 02/12/24 06:13 <Joseluis Lilly - Last Filed: 02/12/24 09:27> - Lab Data Result diagrams: 02/12/24 06:13 02/12/24 06:13 <Manuel Gleason - Last Filed: 02/14/24 23:01> - Medical Decision Making Patient care signed out to me by previous shift physician, Dr. Jasiel Clarke. Nazanin campos, patient is 88-year-old male presents emergency department for confusion dizziness and impacted cerumen. Plan at signout was to follow-up with pending labs and imaging. Vital signs were reviewed. Vital signs upon arrival are within acceptable limits. Laboratory evaluation obtained. INR is 3.7. CBC is unremarkable. Metabolic panel is unremarkable. Troponin is elevated 0.06. Compared to previous troponin levels seems to be higher than what he has had historically. Brain CT is unremarkable. Patient evaluated at bedside not complaining of obvious ACS type symptoms. Reevaluated at 8:27 AM found to be stable to condition. Patient given aspirin will be admitted to observation cons ultation to cardiology for elevated troponin. (Joseluis Lilly) - Lab Data Lab Results 0902/12/24 02/12/24 Range/Units 06:13 06:13 06:13 WBC 6.4 (3.8-10.6) k/uL RBC 3.98 L (4.30-5.90) m/uL Hgb 13.1 (13.0-17.5) gm/dL Hct 39.5 (39.0-53.0) % MCV 99.3 (80.0-100.0) fL MCH 33.0 (25.0-35.0) pg MCHC 33.2 (31.0-37.0) g/dL RDW 14.3 (11.5-15.5) % Plt Count 217 (150-450) k/uL MPV 7.8 Neutrophils % 58 % Lymphocytes % 27 % Monocytes % 10 % Eosinophils % 3 % Basophils % 1 % Neutrophils # 3.8 (1.3-7.7) k/uL Lymphocytes # 1.7 (1.0-4.8) k/uL Monocytes # 0.6 (0-1.0) k/uL Eosinophils # 0.2 (0-0.7) k/uL Basophils # 0.1 (0-0.2) k/uL PT 36.6 H (10.0-12.5) sec INR 3.7 H (<1.2) APTT 41.5 H (22.0-30.0) sec Sodium 136 L (137-145) mmol/L Potassium 4.1 (3.5-5.1) mmol/L Chloride 103 (98-107) mmol/L Carbon Dioxide 25 (22-30) mmol/L Anion Gap 8 mmol/L BUN 20 (9-20) mg/dL Creatinine 0.95 (0.66-1.25) mg/dL Est GFR (CKD-EPI)AfAm 83 (>60 ml/min/1.73 sqM) Est GFR (CKD-EPI)NonAf 72 (>60 ml/min/1.73 sqM) Glucose 138 H (74-99) mg/dL Plasma Lactic Acid Joseph (0.7-2.0) mmol/L Calcium 9.2 (8.4-10.2) mg/dL Phosphorus 2.9 (2.5-4.5) mg/dL Magnesium 1.8 (1.6-2.3) mg/dL Total Bilirubin 1.0 (0.2-1.3) mg/dL AST 32 (17-59) U/L ALT 13 (4-49) U/L Alkaline Phosphatase 91 (38-126) U/L Troponin I (0.000-0.034) ng/mL NT-Pro-B Natriuret Pep 1420 pg/mL Total Protein 6.5 (6.3-8.2) g/dL Albumin 3.7 (3.5-5.0) g/dL 02/12/24 02/12/24 Range/Units 06:13 06:44 WBC (3.8-10.6) k/uL RBC (4.30-5.90) m/uL Hgb (13.0-17.5) gm/dL Hct (39.0-53.0) % MCV (80.0-100.0) fL MCH (25.0-35.0) pg MCHC (31.0-37.0) g/dL RDW (11.5-15.5) % Plt Count (150-450) k/uL MPV Neutrophils % % Lymphocytes % % Monocytes % % Eosinophils % % Basophils % % Neutrophils # (1.3-7.7) k/uL Lymphocytes # (1.0-4.8) k/uL Monocytes # (0-1.0) k/uL Eosinophils # (0-0.7) k/uL Basophils # (0-0.2) k/uL PT (10.0-12.5) sec INR (<1.2) APTT (22.0-30.0) sec Sodium (137-145) mmol/L Potassium (3.5-5.1) mmol/L Chloride (98-107) mmol/L Carbon Dioxide (22-30) mmol/L Anion Gap mmol/L BUN (9-20) mg/dL Creatinine (0.66-1.25) mg/dL Est GFR (CKD-EPI)AfAm (>60 ml/min/1.73 sqM) Est GFR (CKD-EPI)NonAf (>60 ml/min/1.73 sqM) Glucose (74-99) mg/dL Plasma Lactic Acid Joseph 1.7 (0.7-2.0) mmol/L Calcium (8.4-10.2) mg/dL Phosphorus (2.5-4.5) mg/dL Magnesium (1.6-2.3) mg/dL Total Bilirubin (0.2-1.3) mg/dL AST (17-59) U/L ALT (4-49) U/L Alkaline Phosphatase (38-126) U/L Troponin I 0.060 H* (0.000-0.034) ng/mL NT-Pro-B Natriuret Pep pg/mL Total Protein (6.3-8.2) g/dL Albumin (3.5-5.0) g/dL Critical Care Time Critical Care Time: Yes Total Critical Care Time: 31 <Manuel Gleason - Last Filed: 02/14/24 23:01> Disposition Decision Time: 09:28 <Joseluis Lilly - Last Filed: 02/12/24 09:27> Is patient prescribed a controlled substance at d/c from ED?: No Time of Disposition: 07:00 <Manuel Gleason - Last Filed: 02/14/24 23:01> Clinical Impression: Benign paroxysmal positional vertigo, Dizziness, Bilateral hearing loss due to cerumen impaction, Impacted cerumen of both ears, Elevated troponin Disposition: LEFT AGAINST MEDICAL ADVICE Condition: Fair
[2024-02-12] MEDS: SODIUM CHLORIDE 0.9% 1,000 ML IV STA (06:56)
[2024-02-12 07:06] LABS: Basophils # (A) 0.1 k/uL (0-0.2); Basophils % (A) 1 %; Eosinophils # (A) 0.2 k/uL (0-0.7); Eosinophils % (A) 3 %; HCT 39.5 % (39.0-53.0); HGB 13.1 gm/dL (13.0-17.5); Lymphocytes # (A) 1.7 k/uL (1.0-4.8); Lymphocytes % (A) 27 %; MCHC 33.2 g/dL (31.0-37.0); MCV 99.3 fL (80.0-100.0); Mean Platelet Volume 7.8; Monocytes # (A) 0.6 k/uL (0-1.0); Monocytes % (A) 10 %; Neutrophils # (A) 3.8 k/uL (1.3-7.7); Neutrophils % (A) 58 %; Platelet Count 217 k/uL (150-450); RBC 3.98 m/uL (4.30-5.90); RDW 14.3 % (11.5-15.5); WBC 6.4 k/uL (3.8-10.6)
[2024-02-12 07:10] LABS: INR 3.7 (<1.2); Partial Thromboplastin Time 41.5 sec (22.0-30.0); Prothrombin Time 36.6 sec (10.0-12.5)
[2024-02-12 07:22] LABS: ALT 13 U/L (4-49); AST 32 U/L (17-59); African American GFR (CKD) 83 (>60 ml/min/1.73 sqM); Albumin 3.7 g/dL (3.5-5.0); Alkaline Phosphatase 91 U/L (38-126); Anion Gap 8 mmol/L; Blood Urea Nitrogen 20 mg/dL (9-20); Calcium 9.2 mg/dL (8.4-10.2); Carbon Dioxide 25 mmol/L (22-30); Chloride 103 mmol/L (98-107); Glucose 138 mg/dL (74-99); Magnesium 1.8 mg/dL (1.6-2.3); Non-African American GFR(CKD) 72 (>60 ml/min/1.73 sqM); Phosphorus 2.9 mg/dL (2.5-4.5); Potassium 4.1 mmol/L (3.5-5.1); Sodium 136 mmol/L (137-145); Total Protein 6.5 g/dL (6.3-8.2)
[2024-02-12 07:29] LABS: NT-Pro-B-Type Natriuretic Pept 1420 pg/mL
--- NOTE | 2024-02-12 08:20 | CT ---
EXAMINATION TYPE: CT brain wo con DATE OF EXAM: 02/12/2024 COMPARISON: 11/16/2023 HISTORY: AMS/DIZZINESS CT DLP: 1107.4 mGycm Automated exposure control for dose reduction was used. FINDINGS: Moderate degenerative change of the greater frontal lobe component. 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 No acute hemorrhage or mass effect. Intracranial a therosclerotic changes. Hypoattenuation in the white matter most available remote microvascular ische vivian craniocervical junction maintained. IMPRESSION: DEGENERATIVE REMOTE ISCHEMIC CHANGE WITH NO ACUTE HEMORRHAGE OR MASS EFFECT. CORRELATED WITH MRI C LINICALLY WARRANTED.
[2024-02-12] MEDS ORDERED: NITROGLYCERIN SL TABS 0.4 MG TAB SUBLINGUAL PRN (09:22)
[2024-02-12] MEDS: ASPIRIN 81 MG PO STA (09:50)
--- NOTE | 2024-02-12 11:23 | P.HPIM ---
History of Present Illness 88-year-old male apparently came in with complaints of lightheadedness and dizziness. Patient is a very poor historian because of his hearing problem and he states it is due to wax. Patient is feeling fine now but he says he was not feeling okay because of which she came to the hospital. Patient denied any chest pain, EKG showed mild bradycardia, atrial fibrillation. Nonspecific ST-T wave changes on the EKG as well. Patient's first set of troponin slightly elevated to 0.06 because of which second troponin was obtained which is 2.670 patient is on Coumadin at home with elevated INR of 3.7. There is no other reason for his troponin elevation because of which cardiology was consulted patient was not started on IV heparin as patient is supratherapeutic, Coumadin which is being held at this time. REVIEW OF SYSTEMS: All other systems are negative except those mentioned in the HPI PHYSICAL EXAMINATION: GENERAL: The patient is alert and oriented x3, not in any acute distress. Well developed, well nourished. HEENT: Pupils are round and equally reacting to light. EOMI. No scleral icterus. No conjunctival pallor. Normocephalic, atraumatic. No pharyngeal erythema. No thyromegaly. CARDIOVASCULAR: S1 and S2 present. No murmurs, rubs, or gallops. PULMONARY: Chest is clear to auscultation, no wheezing or crackles. ABDOMEN: Soft, nontender, nondistended, normoactive bowel sounds. No palpable organomegaly. MUSCULOSKELETAL: No joint swelling or deformity. EXTREMITIES: No cyanosis, clubbing, or pedal edema. NEUROLOGICAL: Gross neurological examination did not reveal any focal deficits. SKIN: No rashes. Assessment and plan -Troponin elevation possibility of type I non-ST elevation [place] cannot be ruled out. Cardiology was consulted. Patient is supratherapeutic and INR but may still need IV heparin but early with addition to cardiology -Atrial fibrillation, flutter chronic A-fib rate controlled. Supratherapeutic INR -Hypertension resumed on home medication DVT prophylaxis: On Coumadin supratherapeutic INR Past Medical History Past Medical History: Atrial Flutter, CVA/TIA, Hypertension History of Any Multi-Drug Resistant Organisms: None Reported Past Surgical History: Appendectomy Past Psychological History: No Psychological Hx Reported Smoking Status: Former smoker Past Alcohol Use History: None Reported Past Drug Use History: None Reported Medications and Allergies Home Medications Medication Instructions Recorded Confirmed Type Enalapril/Hydrochlorothiazide 1 tab PO DAILY 03/29/18 02/12/24 History [Vaseretic 5-12.5 mg] Warfarin Sodium [Coumadin] 5 mg PO SUMOWEFRSA 03/29/18 02/12/24 History Warfarin Sodium [Coumadin] 7.5 mg PO TUTH 03/29/18 02/12/24 History allopurinoL [Zyloprim] 100 mg PO BID 03/29/18 02/12/24 History Triamcinolone 0.5% Cream [Kenalog 1 applic TOPICAL BID 02/12/24 02/12/24 History 0.5% Cream] atenoloL [Tenormin] 25 mg PO HS 02/12/24 02/12/24 History Allergies Allergy/AdvReac Type Severity Reaction Status Date / Time codeine Allergy Unknown Verified 02/12/24 10:29 diazepam [From Valium] Allergy Unknown Verified 02/12/24 10:29 Physical Exam Vitals: Vital Signs Temp Pulse Resp BP Pulse Ox 02/12/24 07:13 58 L 15 130/58 98 02/12/24 05:21 97.9 F 70 20 185/84 99 Intake and Output 02/11/24 02/12/24 02/12/24 22:59 06:59 14:59 Other: Weight 74.389 kg Results CBC & Chem 7: 02/12/24 06:13 02/12/24 06:13 Labs: Abnormal Lab Results - Last 24 Hours (Table) 02/12/24 02/12/24 02/12/24 Range/Units 06:13 06:13 06:13 RBC 3.98 L (4.30-5.90) m/uL PT 36.6 H (10.0-12.5) sec INR 3.7 H (<1.2) APTT 41.5 H (22.0-30.0) sec Sodium 136 L (137-145) mmol/L Glucose 138 H (74-99) mg/dL Troponin I (0.000-0.034) ng/mL 02/12/24 02/12/24 Range/Units 06:13 10:03 RBC (4.30-5.90) m/uL PT (10.0-12.5) sec INR (<1.2) APTT (22.0-30.0) sec Sodium (137-145) mmol/L Glucose (74-99) mg/dL Troponin I 0.060 H* 2.670 H* (0.000-0.034) ng/mL
[2024-02-12] MEDS: TRIAMCINOLONE ACET 0.5% CREAM 15 GM TUBE TOPICAL SCH (20:42)
[2024-02-12] MEDS: atenoloL 25 MG TAB PO SCH (20:42)
[2024-02-12 22:46] LABS: Appearance,Urine Clear (Clear); Bilirubin,Urine Negative (Negative); Blood,Urine Small (Negative); Color,Urine Light Yellow; Glucose,Urine (UA) Negative (Negative); Ketones,Urine Negative (Negative); Leukocyte Esterase,Urine Negative (Negative); Mucus,Urine Rare /hpf; Nitrite,Urine Negative (Negative); PH, Urine 6.5 (5.0-8.0); Protein,Urine Trace (Negative); RBC,Urine 11 /hpf (0-5); Specific Gravity,Urine 1.016 (1.001-1.035); Squamous Epithelial Cell,Urine 1 /hpf (0-4); WBC,Urine 3 /hpf (0-5)
[2024-02-13 07:44] VITALS: TEMP 97.5
--- NOTE | 2024-02-13 08:14 | CA ---
Transthoracic Echo Report Name: Ady Calvillo Age: 88 Gender: M : 1935 Exam Date: 02/12/2024 13:26 Exam Location: [place] [facility] Ht (in): 72 Wt (lb): 164 Ordering Physician: Tiarra Meneses Attending/Referring Phys: [id number], [facility] Yanira Fairbanks RDCS Procedure CPT: Indications: elevated trops Cardiac Hx: Technical Quality: Fair Contrast 1: Total Dose (mL): Contrast 2: Total Dose (mL): MEASUREMENTS (Male / Female) Normal Values 2D ECHO LV Diastolic Diameter PLAX 5.5 cm 4.2 - 5.9 / 3.9 - 5.3 cm LV Systolic Diameter PLAX 3.5 cm IVS Diastolic Thickness 0.9 cm 0.6 - 1.0 / 0.6 - 0.9 cm LVPW Diastolic Thickness 0.9 cm 0.6 - 1.0 / 0.6 - 0.9 cm LV Relative Wall Thickness 0.3 RV Internal Dim ED PLAX 1.9 cm LVOT Diameter 2.1 cm LA Systolic Diameter LX 5.2 cm 3.0 - 4.0 / 2.7 - 3.8 cm LV Diastolic Volume MOD BP 70.3 cm??? 67 - 155 / 56 - 104 cm??? LV Systolic Volume MOD BP 28.2 cm??? 22 - 58 / 19 - 49 cm??? LV Ejection Fraction MOD BP 59.9 % >= 55 % LV Cardiac Index MOD BP 1321.2 cm???/min???m??? LV Diastolic Volume MOD 4C 88.8 cm??? LV Systolic Volume MOD 4C 31.9 cm??? LV Ejection Fraction MOD 4C 64.1 % LV Cardiac Index MOD 4C 1788.2 cm???/min???m??? LV Diastolic Length 4C 7.6 cm LV Systolic Length 4C 6.6 cm LV Diastolic Volume MOD 2C 52.4 cm??? LV Systolic Volume MOD 2C 24.5 cm??? LV Ejection Fraction MOD 2C 53.2 % LV Cardiac Index MOD 2C 875.6 cm???/min???m??? LV Diastolic Length 2C 7.1 cm LV Systolic Length 2C 6.3 cm M-MODE Aortic Root Diameter MM 3.2 cm LA Systolic Diameter MM 1.0 cm LA Ao Ratio MM 0.3 AV Cusp Separation MM 5.1 cm DOPPLER AV Peak Velocity 191.3 cm/s AV Peak Gradient 14.6 mmHg AV Mean Velocity 126.4 cm/s AV Mean Gradient 8.0 mmHg AV Velocity Time Integral 46.8 cm AI Peak Velocity 201.9 cm/s AI Peak Gradient 16.3 mmHg AI Pressure Half Time 538.5 ms LVOT Peak Velocity 79.2 cm/s LVOT Peak Gradient 2.5 mmHg LVOT Velocity Time Integral 19.8 cm LVOT Stroke Volume 65.8 cm??? LVOT Stroke Volume Index 33.6 ml/m??? LVOT Cardiac Index 2067.6 cm???/min???m??? AV Area Cont Eq vti 1.4 cm??? AV Area Cont Eq pk 1.4 cm??? MV E' Velocity 7.1 cm/s TR Peak Velocity 237.5 cm/s TR Peak Gradient 22.6 mmHg FINDINGS Left Ventricle Left ventricular ejection fraction is estimated at 50-55 %. Normal left ventricular wall motion. Left ventricular cavity size normal. No obvious regional wall motion abnormalities. Right Ventricle Normal right ventricular size and function. Right ventricular systolic pressure within normal limits. Right Atrium Mild right atrial dilatation. Left Atrium Moderate LA dilatation Mitral Valve Structurally normal mitral valve. Mitral valve thickened. Mitral annular calcification. Mild mitral regurgitation. moderate mitral annular calcification. Aortic Valve Trileaflet aortic valve. Mild aortic regurgitation. Mild aortic stenosis with a peak gradient of 15 mmHg and a mean gradient of 8 mmHg. Tricuspid Valve Tricuspid valve not well visualized. Pulmonic Valve Structurally normal pulmonic valve. Trace pulmonic regurgitation. No pulmonic stenosis. Pericardium No pericardial or pleural effusion. Aorta Normal size aortic root and proximal ascending aorta. CONCLUSIONS Left ventricular ejection fraction is estimated at 50-55 %. Mild distal amarjit-septal wall hypokinesia No obvious regional wall motion abnormalities. Normal right ventricular size and function. Moderate LA dilatation Mild mitral regurgitation. Calcific aortic valve with Mild Aortic regurgitation and mild Aortic stenosis. Previewed by: Dr Tray Baker (Electronically Signed) Final Date: 13 February 2024 08:13
[2024-02-13] MEDS: carvediloL 6.25 MG TAB PO SCH (08:23)
[2024-02-13] MEDS: lisinopriL 20 MG TAB PO SCH (08:23)
[2024-02-13] MEDS: ASPIRIN 81 MG PO SCH (08:23)
[2024-02-13] MEDS ORDERED: hydrALAZINE HCL 20 MG/ML 1 ML VIAL IVP PRN (08:56)
[2024-02-13] MEDS ORDERED: ASPIRIN 325 MG TAB PO SCH (09:00)
[2024-02-13] MEDS ORDERED: LISINOPRIL-HCTZ 10-12.5 MG 1 EACH TAB PO SCH (09:00)
[2024-02-13] MEDS ORDERED: HEPARIN SODIUM 1,000 UN/ML (10ML VL) IV PRN (10:53)
[2024-02-13] MEDS ORDERED: HEPARIN SODIUM 1,000 UN/ML (10ML VL) IV ONE (10:53)
[2024-02-13] MEDS ORDERED: ISOSORBIDE MONONITRATE ER 15 MG TAB PO SCH (11:00)
[2024-02-13] MEDS ORDERED: HEPARIN SOD,PORK IN 0.45% NACL 25,000 UNIT in 0.45% NACL 1 250ML.BAG IV SCH (11:00)
--- NOTE | 2024-02-13 11:06 | P.CRDCN ---
History of Present Illness Consult date: 02/13/24 History of present illness: HISTORY OF PRESENTING ILLNESS Patient is a 88-year-old male who presented to the hospital because of nonspecific complaints of lightheadedness and dizziness along with feeling weak. He is a very poor historian. He is not able to answer my questions appropriately. He has significant hearing impairment. I tried contacting the family members via phone but they do not know about patient's medical conditions and are not able to provide me insights why the patient is in the hospital. At this time patient feels that he was to go back home and is very impatient. On admission he had an ECG performed which showed atrial fibrillation was rate controlled heart rate 58 bpm. There were no significant ST changes that were concerning of ischemia. He is labs showed hemoglobin 13.1, INR 3.7, BUN 20, creatinine 0.9. Troponin was 0.06, 2.6, 4.9. Follow-up echocardiogram was performed which showed an EF of 50 to 55%, possible distal anteroseptal wall hypokinesia, mild aortic stenosis, mild mitral regurgitation. REVIEW OF SYSTEMS 14 point review of system is negative except what is mentioned above in HPI. PHYSICAL EXAMINATION Vital signs reviewed. Head: Normocephalic. Eyes: Sclerae nonicteric. Neck: Brisk carotid upstroke, no jugular venous distention. Lungs: Clear to auscultation. Heart: Irregularly irregular pulse, S1-S2, mild systolic murmur audible Abdomen: Soft nontender, positive bowel sounds. Extremities: No edema, intact distal pulses. Neuro: Alert, oritented, no focal deficits. Detailed neuro exam was not performed. ASSESSMENT NSTEMI Metabolic encephalopathy Lightheadedness and dizziness Chronic atrial fibrillation, slow ventricular response PLAN Continue aspirin, Lipitor 40 mg Patient's blood pressure is elevated. Will start lisinopril 20 mg daily, Imdur 50 mg daily, Coreg 6.25 mg twice daily Start IV heparin drip. Hold Coumadin. Monitor INR At this time patient is noncooperative. He wants to leave. I have communicated with patient's who is not able to give much insight. I have communicated with the patient's son I have requested him to come to the ER so that we can communicate and take a better decision for the patient and respect his wishes. Tray Baker MD, FACC, RPVI Thank you for allowing [facility] to participate in this patient's care. Feel free to reach out in case of any followup questions. Past Medical History Past Medical History: Atrial Flutter, CVA/TIA, Hypertension History of Any Multi-Drug Resistant Organisms: None Reported Past Surgical History: Appendectomy Past Psychological History: No Psychological Hx Reported Smoking Status: Former smoker Past Alcohol Use History: None Reported Past Drug Use History: None Reported Medications and Allergies Home Medications Medication Instructions Recorded Confirmed Type Enalapril/Hydrochlorothiazide 1 tab PO DAILY 03/29/18 02/12/24 History [Vaseretic 5-12.5 mg] Warfarin Sodium [Coumadin] 5 mg PO SUMOWEFRSA 03/29/18 02/12/24 History Warfarin Sodium [Coumadin] 7.5 mg PO TUTH 03/29/18 02/12/24 History allopurinoL [Zyloprim] 100 mg PO BID 03/29/18 02/12/24 History Triamcinolone 0.5% Cream [Kenalog 1 applic TOPICAL BID 02/12/24 02/12/24 History 0.5% Cream] atenoloL [Tenormin] 25 mg PO HS 02/12/24 02/12/24 History Allergies Allergy/AdvReac Type Severity Reaction Status Date / Time codeine Allergy Unknown Verified 02/12/24 10:29 diazepam [From Valium] Allergy Unknown Verified 02/12/24 10:29 Physical Exam Vitals: Vital Signs Temp Pulse Resp BP Pulse Ox 02/13/24 08:31 75 18 161/77 96 02/13/24 07:34 97.5 F L 76 18 180/99 97 02/13/24 06:54 80 18 155/85 99 02/13/24 02:00 76 16 160/80 96 02/12/24 20:12 76 18 126/83 97 02/12/24 18:46 98.2 F 78 15 149/69 97 02/12/24 15:00 62 16 164/99 99 02/12/24 13:00 72 15 168/66 98 02/12/24 12:00 51 L 15 164/94 96 02/12/24 11:51 98.1 F 66 16 108/77 99 Results 02/12/24 06:13 02/12/24 06:13 Cardiac Enzymes 02/12/24 Range/Units 12:51 Troponin I 4.900 H* (0.000-0.034) ng/mL Current Medications Generic Name Dose Route Start Last Admin Trade Name Naila PRN Reason Stop Dose Admin Aspirin 81 mg 02/13/24 09:00 02/13/24 08:23 Aspirin 81 Mg PO 81 mg DAILY [facility] Administration Atorvastatin Calcium 40 mg 02/13/24 21:00 Atorvastatin 40 Mg Tab PO HS [facility] Carvedilol 6.25 mg 02/13/24 07:45 02/13/24 08:23 Carvedilol 6.25 Mg Tab PO 6.25 mg BID-W/MEALS [facility] Administration Heparin Sodium (Porcine) 0 unit 02/13/24 10:53 Heparin Sodium 1,000 Un/Ml (10ml Vl) IV PER PROTOCOL PRN Low PTT Protocol Heparin Sodium/Sodium Chloride 250 mls @ 8.927 mls/hr 02/13/24 11:00 25,000 unit/ Sodium Chloride IV .Q24H [facility] Protocol 12 UNITS/KG/HR Isosorbide Mononitrate 15 mg 02/13/24 11:00 Isosorbide Mononitrate Er 15 Mg Tab PO DAILY [facility] Lisinopril 20 mg 02/13/24 09:00 02/13/24 08:23 Lisinopril 20 Mg Tab PO 20 mg DAILY [facility] Administration Nitroglycerin 0.4 mg 02/12/24 09:22 Nitroglycerin Sl Tabs 0.4 Mg Tab SUBLINGUAL Q5M PRN Chest Pain Triamcinolone Acetonide 1 applic 02/12/24 21:00 02/13/24 08:31 Triamcinolone Acet 0.5% Cream 15 Gm Tube TOPICAL Not Given BID [facility] Protocol 02/12/24 06:13 02/12/24 06:13
[2024-02-13 11:57] VITALS: BP 162/83; PULSE 60; RESP 16
--- NOTE | 2024-02-13 14:10 | P.PN ---
Subjective Progress Note Date: 02/13/24 88-year-old male apparently came in with complaints of lightheadedness and dizziness. Patient is a very poor historian because of his hearing problem and he states it is due to wax. Patient is feeling fine now but he says he was not feeling okay because of which she came to the hospital. Patient denied any chest pain, EKG showed mild bradycardia, atrial fibrillation. Nonspecific ST-T wave changes on the EKG as well. Patient's first set of troponin slightly elevated to 0.06 because of which second troponin was obtained which is 2.670 patient is on Coumadin at home with elevated INR of 3.7. There is no other reason for his troponin elevation because of which cardiology was consulted p atient was not started on IV heparin as patient is supratherapeutic, Coumadin which is being held at this time 02/12. Patient seen and examined. Patient is insistent about going home exp lained to him the risk of going home in light of him needing cardiac workup. Patient gets confused easily. Son on the way to talk to us. REVIEW OF SYSTEMS: CONSTITUTIONAL: No fever, no malaise,. CARDIOVASCULAR: No chest pain, no palpitations, no syncope. PULMONARY: No shortness of breath, no cough, GASTROINTESTINAL: No diarrhea, no nausea, no vomiting, no abdominal pain. NEUROLOGICAL: No headaches, no weakness, PHYSICAL EXAMINATION: GENERAL: The patient is alert to self and place HEENT: Pupils are round and equally reacting to light. EOMI. No scleral icterus. No conjunctival pallor. Normocephalic, atraumatic. No pharyngeal erythema. No thyromegaly. CARDIOVASCULAR: S1 and S2 present. No murmurs, rubs, or gallops. PULMONARY: Chest is clear to auscultation, no wheezing or crackles. ABDOMEN: Soft, nontender, nondistended, normoactive bowel sounds. No palpable organomegaly. MUSCULOSKELETAL: No joint swelling or deformity. EXTREMITIES: No cyanosis, clubbing, or pedal edema. NEUROLOGICAL: Gross neurological examination did not reveal any focal deficits. SKIN: No rashes. Assessment and plan NSTEMI Fibrillation Hypertension Monitor vital signs Monitor CBC Monitor CMP Continue telemetry monitoring Trend troponins Ordered 2D echo INR is supratherapeutic, currently hold off on heparin, once INR is less than 2, start heparin Cardiology consulted Labs and medication were reviewed.. Continue same treatment. Continue with symptomatic treatment. Resume home medication. Monitor labs and vitals. DVT and GI prophylaxis. Further recommendations as per clinical course of the patient Dictation was produced using [employer] dictation software. please excuse any grammatical, word or spelling errors. Objective - Vital Signs Vital signs: Vital Signs Temp 97.5 F L 02/13/24 07:34 Pulse 75 02/13/24 08:31 Resp 18 02/13/24 08:31 BP 161/77 02/13/24 08:31 Pulse Ox 96 02/13/24 08:31 FiO2 - Labs CBC & Chem 7: 02/12/24 06:13 02/12/24 06:13 Labs: Abnormal Lab Results - Last 24 Hours (Table) 02/12/24 02/12/24 02/12/24 Range/Units 10:03 12:51 22:14 Troponin I 2.670 H* 4.900 H* (0.000-0.034) ng/mL Urine Protein Trace H (Negative) Urine Blood Small H (Negative) Urine RBC 11 H (0-5) /hpf Urine Mucus Rare H (None) /hpf
[2024-02-13] MEDS ORDERED: ATORVASTATIN 40 MG TAB PO SCH (21:00)
== END 2024-02-13 12:26 | disposition left against medical advice (07) ==
LOC: EC 05:18 → 3SCARD 09:22
PROVIDERS: ADMIT Internal Medicine; ATTEND Internal Medicine
DX: I21.4 Non-ST elevation (NSTEMI) myocardial infarction (principal); G93.41 Metabolic encephalopathy; I48.20 Chronic atrial fibrillation, unspecified; I10 Essential (primary) hypertension; H61.23 Impacted cerumen, bilateral; H81.10 Benign paroxysmal vertigo, unspecified ear; R00.1 Bradycardia, unspecified; R79.1 Abnormal coagulation profile; I48.92 Unspecified atrial flutter; I08.0 Rheumatic disorders of both mitral and aortic valves; Z79.01 Long term (current) use of anticoagulants; Z79.899 Other long term (current) drug therapy; Z88.5 Allergy status to narcotic agent; Z88.8 Allergy status to other drugs, medicaments and biological substances; Z87.891 Personal history of nicotine dependence; Z53.29 Procedure and treatment not carried out because of patient's decision for other reasons
CPT/HCPCS: 36415; 70450; 80053; 81001; 83605; 83735; 83880; 84100; 84484; 85025; 85610; 85730; 93005; 93306; 96360; 99285

== ENCOUNTER 2024-05-30 00:43 | Emergency (ER) | payer MEDICARE, BC ==
[2024-05-30 00:51] VITALS: TEMP 97.6
--- NOTE | 2024-05-30 01:26 | ED ---
URI HPI - General Chief Complaint: Upper Respiratory Infection Stated Complaint: Difficulty Breathing Time Seen by Provider: 05/30/24 00:57 Source: patient, RN notes reviewed Mode of arrival: wheelchair Limitations: no limitations - History of Present Illness Initial Comments: This is a an 89-year-old male with a history of previous CVA on warfarin and hyp ertension presenting to the emergency department with his son for complaint of sinus congestion over the past 3 days. States that he has he has a pressure in his face. Additionally, when he is attempted blow his nose he noticed there is scant blood on tissues. He denies chest pain, shortness of breath, difficulty breathing, heart palpitations, fevers or chills, cough. Son at bedside states the patient has been taking [id number] Mucinex - Related Data Home Medications Medication Instructions Recorded Confirmed Enalapril/Hydrochlorothiazide 1 tab PO DAILY 03/29/18 02/12/24 [Vaseretic 5-12.5 mg] Warfarin Sodium [Coumadin] 5 mg PO SUMOWEFRSA 03/29/18 02/12/24 Warfarin Sodium [Coumadin] 7.5 mg PO TUTH 03/29/18 02/12/24 allopurinoL [Zyloprim] 100 mg PO BID 03/29/18 02/12/24 Triamcinolone 0.5% Cream [Kenalog 1 applic TOPICAL BID 02/12/24 02/12/24 0.5% Cream] atenoloL [Tenormin] 25 mg PO HS 02/12/24 02/12/24 Allergies Allergy/AdvReac Type Severity Reaction Status Date / Time codeine Allergy Unknown Verified 05/30/24 00:44 diazepam [From Valium] Allergy Unknown Verified 05/30/24 00:44 Review of Systems ROS Statement: Those systems with pertinent positive or pertinent negative responses have been documented in the HPI. ROS Other: All systems not noted in ROS Statement are negative. Past Medical History Past Medical History: Atrial Flutter, CVA/TIA, Hypertension History of Any Multi-Drug Resistant Organisms: None Reported Past Surgical History: Appendectomy Past Psychological History: No Psychological Hx Reported Smoking Status: Former smoker Past Alcohol Use History: None Reported Past Drug Use History: None Reported General Exam Limitations: no limitations Eye exam: Present: normal appearance, PERRL, EOMI. Absent: scleral icterus, conjunctival injection, periorbital swelling Neck exam: Present: normal inspection. Absent: tenderness, meningismus, lymphadenopathy Respiratory exam: Present: normal lung sounds bilaterally. Absent: respiratory distress, wheezes, rales, rhonchi, stridor Cardiovascular Exam: Present: regular rate, normal rhythm, normal heart sounds. Absent: systolic murmur, diastolic murmur, rubs, gallop, clicks GI/Abdominal exam: Present: soft, normal bowel sounds. Absent: distended, tenderness, guarding, rebound, rigid Extremities exam: Present: normal inspection, full ROM, normal capillary refill. Absent: tenderness, pedal edema, joint swelling, calf tenderness Back exam: Present: normal inspection Skin exam: Present: warm, dry, intact, normal color. Absent: rash Course Vital Signs 05/30/24 05/30/24 00:44 02:11 Temperature 97.6 F Pulse Rate 91 66 Respiratory 18 16 Rate Blood Pressure 150/68 153/66 O2 Sat by Pulse 95 99 Oximetry Medical Decision Making - Medical Decision Making Was pt. sent in by a medical professional or institution (Dr. PA, [employer], urgent care, hospital, or detention...) When possible be specific @ -No Did you speak to anyone other than the patient for history (EMS, parent, family, police, friend...)? What history was obtained from this source @ -No Did you review nursing and triage notes (agree or disagree)? Why? @ -I reviewed and agree with nursing and triage notes Were old charts reviewed (outside hosp., previous admission, EMS record, old EKG, old radiological studies, urgent care reports/EKG's, detention records)? Report findings @ -No old charts were reviewed Differential Diagnosis (chest pain, altered mental status, abdominal pain women, abdominal pain men, vaginal bleeding, weakness, fever, dyspnea, syncope, headache, dizziness, GI bleed, back pain, seizure, CVA, palpatations, mental health, musculoskeletal)? @ -COVID 19, RSV, influenza, pneumonia, acute bronchitis, URI, this list is not all inclusive EKG interpreted by me (3pts min.). @ -none X-rays interpreted by me (1pt min.). @ -None done CT interpreted by me (1pt min.). @ -None done U/S interpreted by me (1pt. min.). @ -None done What testing was considered but not performed or refused? (CT, X-rays, U/S, labs)? Why? @ -Chest x-ray was considered but deferred at this time. Patient's vitals are stable, and there are no pulmonary physical examination adventitious sounds auscultated. patient is in agreement with deferring XR as well. What meds were considered but not given or refused? Why? @ -None Did you discuss the management of the patient with other professionals (professionals i.e. , PA, [employer], lab, RT, psych nurse, social welfare clerk, gear lapping machine operator, teacher, chief sustainability officer, rn case manager)? Give summary @ -No Was smoking cessation discussed for >3mins.? @ -No Was critical care preformed (if so, how long)? @ -No Were there social determinants of health that impacted care today? How? (Homele ssness, low income, unemployed, alcoholism, drug addiction, transportation, low edu. Level, literacy, decrease access to med. care, senior care, rehab)? @ -No Was there de-escalation of care discussed even if they declined (Discuss DNR or withdrawal of care, Hospice)? DNR status @ -No What co-morbidities impacted this encounter? (DM, HTN, Smoking, COPD, CAD, Cancer, CVA, ARF, Chemo, Hep., AIDS, mental health diagnosis, sleep apnea, morbid obesity)? @ -None Was patient admitted / discharged? Hospital course, mention meds given and route, prescriptions, significant lab abnormalities, going to OR and other pertinent info. @ -Discharge. 81-year-old male presenting with congestion and postnasal drip. Vitals are stable. Patient is positive for COVID. Recommend he continue symptomatic treatment at home using Tylenol for pain. Recommend that patient does not use [id number] Afrin as this may worsen hypertension. Discussed with Dr. Gleason Undiagnosed new problem with uncertain prognosis? @ -No Drug Therapy requiring intensive monitoring for toxicity (Heparin, Nitro, Insulin, Cardizem)? @ -No Were any procedures done? @ -No Diagnosis/symptom? @ -COVID19 Acute, or Chronic, or Acute on Chronic? @ -acute Uncomplicated (without systemic symptoms) or Complicated (systemic symptoms)? @ -uncomplicated Side effects of treatment? @ -No Exacerbation, Progression, or Severe Exacerbation? @ -No Poses a threat to life or bodily function? How? (Chest pain, [place], [place], pneumonia, PE, COPD, DKA, ARF, appy, cholecystitis, CVA, Diverticulitis, Homicidal, Suicidal, threat to staff... and all critical care pts) @ -No - Lab Data Lab Results 05/30/24 Range/Units 01:14 Influenza Type A (PCR) Not Detected (Not Detectd) Influenza Type B (PCR) Not Detected (Not Detectd) RSV (PCR) Not Detected (Not Detectd) SARS-CoV-2 (PCR) Detected A (Not Detectd) Disposition Clinical Impression: COVID-19 Disposition: HOME SELF-CARE Condition: Good Instructions (If sedation given, give patient instructions): COVID-19 and Chronic Health Conditions (ED) Additional Instructions: Please return to the Emergency Department if symptoms worsen or any other concerns. Is patient prescribed a controlled substance at d/c from ED?: No Referrals: Evan Sprague MD [Primary Care Provider] - 1-2 days Time of Disposition: 02:04
[2024-05-30 02:22] VITALS: BP 153/66; PULSE 66; RESP 16
== END 2024-05-30 02:11 | disposition home or self-care (01) ==
LOC: EC 00:43
DX: U07.1 COVID-19 (principal); Z88.5 Allergy status to narcotic agent; Z88.8 Allergy status to other drugs, medicaments and biological substances; Z87.891 Personal history of nicotine dependence; Z86.73 Personal history of transient ischemic attack (TIA), and cerebral infarction without residual deficits
CPT/HCPCS: 87636; 99285